=== PATIENT | female | born 2000 | race Caucasian/White ===

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

== ENCOUNTER 2021-07-05 09:27 | Inpatient (IN) | payer SELFPAY, OTHER ==
[2021-07-05] VITALS (17 sets, daily range): BP systolic 118–141; BP diastolic 57–75; PULSE 65–98; RESP 14–18; TEMP 36.1–36.6; O2SAT 97–100; BMI 27.2
[2021-07-05] MEDS: Lactated Ringers 1,000 ML 999 ML IV (09:45)
[2021-07-05] MEDS: Acetaminophen 500 MG Tablet 1000 MG PO ×3 (09:57→22:55)
[2021-07-05 10:07] LABS: Absolute Lymphocyte Count 1.85 X10^3/uL (0.83-4.51); Absolute Neutrophil Count 7.2 X10^3/uL (2.0-7.7); Basophil# 0.01 X10^3/uL; Basophil% 0.1 % (0-1); Eosinophil# 0.05 X10^3/uL; Eosinophils% 0.5 % (0-5); Hematocrit 37.3 % (37-47); Hemoglobin 12.2 g/dL (12.0-15.0); Lymphocyte # 1.85 X10^3/ul (0.83-4.51); Lymphocyte % 19.7 % (19-41); Mean Corp Hgb Conc 32.7 g/dL (32-36); Mean Corpuscular Hgb 27.4 pg (27.0-32.0); Mean Corpuscular Volume 83.8 fL (81-99); Mean Platelet Vol. 11.7 fl (6.2-12.0); Monocyte# 0.28 X10^3/uL; NRBC Flagged by Analyzer 0 % (0-5); Neutrophil # 7.17 X10^3/uL (2.7-7.7); Neutrophil % 76.2 % (47-70); Platelet Count 142 K/mm3 (150-450); RBC Distribution Width CV 14.6 % (11.6-14.6); RBC Distribution Width SD 44.2 fl (35.1-43.9); Red Blood Count 4.45 M/mm3 (4.2-5.4); White Blood Count 9.4 K/mm3 (4.4-11.0)
[2021-07-05] MEDS: Lactated Ringers 1,000 ML 150 ML IV (10:46)
[2021-07-05] MEDS: Sodium Citrate/Citric Acid 30 ML UDC PO (11:46)
--- NOTE | 2021-07-05 11:48 | PCM.HP.BLA ---
History and Physical Date of Admission: 07/05/21 Pre-Op History and Physical ? HPI: The patient is a 21 year old female presenting for pre-operative visit. She is scheduled for , for BREECH, 39 weeks gestation on 07/05/21. Procedure discussed along with risks, benefits and complications. Other alternatives discussed for management. Consent form signed? Yes. ? ? PAST MEDICAL HISTORY PAST MEDICAL HISTORY Diagnosis Date ? PMH - PAST MEDICAL HISTORY OF ? ? Color Vision - Normal ? ? PAST SURGICAL HISTORY PAST SURGICAL HISTORY Procedure Laterality Date ? LAPAROSCOPY, SURGICAL, APPENDECTOMY ? 07/22/10 ? Early ? ? ? CURRENT MEDICATIONS Current Outpatient Medications Medication Sig Dispense Refill ? ferrous sulfate (IRON) 325 mg (65 mg iron) tablet Take 325 mg by mouth daily with breakfast. ? ? ? magnesium oxide 400 mg magnesium tab Take by mouth. ? ? ? docosahexaenoic acid/epa (FISH OIL ORAL) Take by mouth. ? ? ? vit,leyla 74/iron/folic ( VITAMIN 1+1 ORAL) Take 1 tablet by mouth once daily. ? ? ? No current facility-administered medications for this visit. ? ? ALLERGIES: Patient has no known allergies. ? PERSONAL HISTORY: SOCIAL HISTORY Social History ? Tobacco Use ? Smoking status: Never Smoker ? Smokeless tobacco: Never Used Substance Use Topics ? Alcohol use: Not on file ? Drug use: Not on file ? FAMILY HISTORY: FAMILY HISTORY FAMILY HISTORY Problem Relation Age of Onset ? Cancer Other ? ? Maternal side ? other (Heart problems) Other ? ? Maternal side ? ? REVIEW OF SYMPTOMS: negative except as noted above PHYSICAL EXAMINATION: ? VITALS: Blood pressure 126/84, weight 178 lb (80.7 kg), last menstrual period 10/03/2020. ? GENERAL: The patient is well nourished, well hydrated in no acute distress. , The patient is oriented to time, place, and person. NECK: full range of motion ABD: gravid, non tender. FHR 145. ? IMPRESSION: 39.2 Weeks gestation BREECH , abdominal mass- likely ovarian cyst ? PLAN: Primary cs ? Pt has been counseled on risks/benefits and alternatives of surgery including but not limited to anesthesia, bleeding, infection, injury to pelvic structures including bowel, bladder, ureters and vessels. Pt wishes to proceed with surgery at this time. covid testing reviewed Pre and pos op instructions reviewed I have reviewed and updated past medical and surgical history, medications and allergies Apryl Lambert MD
[2021-07-05] MEDS: Cefazolin 2 GM in 0.9% Normal Saline 100 ML IV (11:58)
[2021-07-05 12:38] LABS: Chlamydia Trachomatis by PCR Negative (Negative); Neisserai gonorrhoeae by PCR Negative (Negative); Probe Check PASS; Sample Adequacy Control PASS; Specimen Processing Control PASS
[2021-07-05] MEDS: Oxytocin 30 units/NS 500 ml 30 UNITS/500 ML IV.SOLN 167 UNITS IV (13:05)
--- NOTE | 2021-07-05 13:06 | EX.PCM.OBRPT ---
Maternal Data Information Final IHSAN: 07/10/21 Final IHSAN Source: US <20 weeks Gestational age: 39.2 Details Operative Information Date of Procedure: 07/05/21 Pre-Operative Diagnosis: breech, 39 weeks gestation Post-Operative Diagnosis: same, live female Indications for : Breech Classification: Scheduled Procedure Type: low transverse behavioral modification assistant #1: Filippo Abdi Type of Anesthesia: Spinal Antibiotic Given: Ancef 2 grams IV x1 Drain: Gr to straight drain Estimated Blood Loss: 600 Fluids Replaced: 1000 Procedure Start Time: : Procedure Stop Time: 12:50 Time of Delivery: : Findings Description of Procedure: After informed consent was obtained the patient was taken the operating room she was given spinal anesthesia. She was then placed in the supine position. She was prepped and draped in the normal sterile fashion. pt still feeling sharp sensation on left- 10cc 1% lidocaine injected along incision site. Anesthesia was found to be adequate. At this time a Pfannenstiel skin incision was made with a knife was carried down to the underlying layer of the fascia. The fascial incision was then extended laterally using curved Hernandez scissor. Tensions was then turned to the superior aspect of the fascial edge was grasped with 2 straight Sobieski clamps tented up and the rectus muscle dissected off sharply using curved Hernandez scissor. Attention was then turned to the inferior aspect where again Sobieski clamps were placed in the rectus muscles were tented up and the fascia was dissected off sharply using the curved Hernandez scissor. Rectus muscles grasped with allis and seperated sharply with scalpel. Peritoneum grasped by milagro and entered sharply. Gentle opposing traction was placed. At this time the vesicouterine peritoneum was identified. Scalpel was used to make a uterine incision in a low transverse fashion. The uterus was then entered bluntly gentle opposing traction was placed to extend this incision. Membranes were ruptured clear. Infant's buttocks was brought to the uterine incision was delivered atraumatically followed by the legs, arms, shoulders and head atraumatically. Cord was clamped and cut was handed to the waiting nursery team. The Placenta was removed from the uterus. The uterus was then removed from the abdominal cavity. The uterus was cleared of all clots and debris using a lap. At this time the uterine incision was reapproximated using #1 Vicryl in a running locked fashion. followed by a second imbricating layer with 1-0 vicryl. Hemostasis was appreciated. Posterior cul-de-sac was then cleared of all clots and debris. Uterus was placed back in the abdominal cavity. Gutters were cleared of all clots and debris. Uterine incision was reevaluated and noted to be of excellent hemostasis. At this time the peritoneum and muscle were grasped with Kellys reapproximated using #2 Vicryl suture in a running fashion. Fascia was then reapproximated using #1 Vicryl in a running fashion. Subcu layer was reapproximated with #2 0 plain gut suture in an interrupted fashion. Subcu layer was closed using 4-0 Monocryl in a subcu fashion. Dry sterile dressing was applied. Instrument lap needle count correct ?2. Anticipated normal postoperative course. Presentation: Positive for Ernst Breech Amniotic Membrane Rupture Type: Artificial Amniotic Fluid Description: Clear Placental Delivery Description: Expressed Placenta Disposition: [facility] Specimen(s) Sent to Pathology: none Cord Vessel Description: 3 Vessels Cord Entanglement: None Infant A Gender: Female (1 minute): 9 (5 minute): 9 Delayed Cord Clamping: Yes Complications Risks of Surgery Discussed w/Patient: Bleeding, Anesthesia Risks, Infection and Injury to surrounding structure(s) including bowel and bladder Complications: none Admit VTE Documentation VTE Present on Admission: Yes VTE Mechan Device Prophylaxis: SCD's VTE Pharm Prophylaxis Ordered: No Reason Prophylaxis Not Ordered: Procedure Not Indicated
[2021-07-05] MEDS: Ketorolac 30 MG/ML Syringe IV ×2 (13:33→19:09)
[2021-07-05] MEDS: 0.9% Saline Lock 10 ML Syringe IV ×3 (13:35→19:09)
[2021-07-06] VITALS: BP 134/65; PULSE 71; RESP 18; O2SAT 99
[2021-07-06] MEDS: Ketorolac 30 MG/ML Syringe IV ×2 (03:04→08:35)
[2021-07-06 04:33] VITALS: BP 135/60; PULSE 70; RESP 18
[2021-07-06] MEDS: Acetaminophen 500 MG Tablet 1000 MG PO ×3 (04:35→16:06)
[2021-07-06 04:49] LABS: Hematocrit 29.6 % (37-47); Hemoglobin 9.7 g/dL (12.0-15.0); Mean Corp Hgb Conc 32.8 g/dL (32-36); Mean Corpuscular Hgb 27.7 pg (27.0-32.0); Mean Corpuscular Volume 84.6 fL (81-99); Mean Platelet Vol. 11.1 fl (6.2-12.0); Platelet Count 128 K/mm3 (150-450); RBC Distribution Width CV 14.5 % (11.6-14.6); RBC Distribution Width SD 44.8 fl (35.1-43.9); White Blood Count 9.6 K/mm3 (4.4-11.0)
[2021-07-06 08:25] VITALS: BP 122/79; PULSE 81; RESP 14; TEMP 36.3
[2021-07-06] MEDS: 0.9% Saline Lock 10 ML Syringe IV (08:35)
[2021-07-06] MEDS: Senna/Docusate Sodium 1 Tablet PO (12:20)
[2021-07-06 12:22] VITALS: BP 129/69; PULSE 72; RESP 16; TEMP 36.4
--- NOTE | 2021-07-06 12:31 | PCM.PN.OB ---
Subjective Subjective Pain controlled Objective Data Objective Data Vital Signs: Vital Signs Temp Pulse Resp BP Pulse Ox 97.5 F L 72 16 129/69 H 99 07/06/21 12:22 07/06/21 12:22 07/06/21 12:22 07/06/21 12:22 07/06/21 00:00 Oxygen Delivery Method Room Air Weight: 179 lb 3.773 oz Body Mass Index (BMI) 27.2 Intake & Output: Intake and Output for Last 24 Hours 07/04/21 07/05/21 07/06/21 23:59 23:59 23:59 Intake Total 3244.58 / 3244.58 Output Total 1300 / 1300 1600 / 1600 Balance 1944.58 / 1944.58 -1600 / -1600 Lab / Micro Data Result Diagrams: 07/06/21 04:40 Labs: Laboratory Results - last 24 hr 07/05/21 09:45: Chlam trachomat DNA PCR Negative, N.gonorrhoeae DNA (PCR) Negative 07/06/21 04:40: WBC 9.6, RBC 3.50 L, Hgb 9.7 L, Hct 29.6 L, MCV 84.6, MCH 27.7, MCHC 32.8, RDW Std Deviation 44.8 H, RDW Coeff of Katja 14.5, Plt Count 128 L, MPV 11.1 Physical Exam Const alert, oriented x3 and no apparent distress HEENT normocephalic GI soft to palpation, non-tender and non-distended GI Narrative: fundus firm, mid & below umbilicus Incision - bandage c/d/i Extremity normal to inspection and no calf tenderness Assessment & Plan (1) Delivery by section: COMMENT: POD#1 PLAN: Heme - HDS, CBC reviewed IF - AF, no signs infection - no voiding issues GI - ADAT Routine care & likely discharge home per patient request
--- NOTE | 2021-07-06 12:49 | DCINST_ITS ---
Discharge Instructions Diet Discharge Diet: No restrictions Activity Discharge Activity: May Shower May resume sexual activity in: 6 weeks Weight Bearing Status: Weight bearing as tolerated Dressing / Incision Call your doctor if your incision/area has: Continuous Slow Oozing, Sudden Increased Bleeding, Increased Pain/ Swelling, Increased Redness, Foul Smelling Discharge and Swelling at the incision site Call your doctor if you observe: Fever of 101 or Higher, Coldness, Increased Pain, Change in Color, Inability to urinate, Inability to have a bowel movement, Using more than 1 pad per hour, Shortness of breath, Dizziness, Fainting spells, Chest pain, Increased palpitations (irregular heartbeat), Calf discomfort and Uncontrolled pain Suture Line Care: Avoid Pulling/Pushing and Avoid Pinching/Bending Remove Dressing in: 1 week Cleanse incision/area with: Soap & Water Follow Up Care Please Follow Up With: Apryl Back MD When: Follow up in 2 and 6 weeks for visits. Test Results: Test results from this visit will be discussed in further detail at your follow-up appointment, if applicable. Discharge Plan Admission Admit Date/Time: 07/05/21 09:27 Primary Reason for Your Visit: section Attending Provider: Apryl Back Primary Care Provider: Ashley Cheema Discharge Orders/Prescriptions Prescriptions: New acetaminophen 500 mg Tablet 1,000 mg PO Q6H Qty: 0 RF: 0 ibuprofen 600 mg Tablet 600 mg PO Q6H Qty: 0 RF: 0 Continued Willard 3-6-9 Complex 1 tab DAILY RF: 0 1 tab DAILY RF: 0 magnesium 1 tablet DAILY RF: 0 Referrals / Follow Up: Ashley Cheema DO [Primary Care Provider] - Disposition Disposition (needs filled in before D/C Order can be placed): Home, Self Care
[2021-07-06] MEDS: Ibuprofen 600 MG Tablet PO (14:48)
[2021-07-06 16:27] VITALS: BP 141/60; PULSE 83; RESP 16; TEMP 36.6
== END 2021-07-06 16:50 | disposition home or self-care (01) | DRG 788 ==
PROVIDERS: Admitting Provider Obstetrics & Gynecology; PCP Internal Medicine; Visit Provider Obstetrics & Gynecology
PROC: 10D00Z1 Extraction of Products of Conception, Low, Open Approach (ICD-10-PCS; CPT 59514; principal; 2021-07-05 11:45)
DX: O32.1XX0 Maternal care for breech presentation, not applicable or unspecified (principal); O35.8XX0 Maternal care for other (suspected) fetal abnormality and damage, not applicable or unspecified; Z3A.39 39 weeks gestation of pregnancy; Z37.0 Single live birth
CPT/HCPCS: 76815; 85025; 85027; 86850; 86900; 86901; 87491; 87591; 99218; 99251; J7120; A4216; G0378; G0463